=== PATIENT | male | born 1945 | race Caucasian/White ===

== ENCOUNTER 2021-11-19 13:25 | Inpatient (IN) | payer MEDICARE, OTHER ==
[~2021-11-19] VITALS: Ht 177.8 cm; Wt 68.3 kg
[2021-11-19] MEDS ORDERED: IVER3TAB2 PO (13:56)
[2021-11-19] MEDS ORDERED: AMIN30LI2 PO (13:56)
[2021-11-19] MEDS ORDERED: MULT-447 PO (13:56)
[2021-11-19] MEDS ORDERED: SULF1TAB48 PO (13:56)
[2021-11-19] MEDS ORDERED: FEBU80TA PO (13:56)
[2021-11-19] MEDS ORDERED: ASCO-352 PO (13:56)
[2021-11-19] MEDS ORDERED: ASPI-1420 PO (13:56)
[2021-11-19] MEDS ORDERED: IBUP-2715 PO (13:56)
[2021-11-19] MEDS ORDERED: POLY15DR40 EACHEYE (13:56)
[2021-11-19] MEDS ORDERED: CHOL100043 PO (13:56)
[2021-11-19] MEDS ORDERED: ONDA4TAB5 PO (13:56)
[2021-11-19] MEDS ORDERED: LEVO112T2 PO (13:56)
[2021-11-19] MEDS ORDERED: ALLA266C2 TP (13:56)
[2021-11-19] MEDS ORDERED: VITA1TAB56 PO (13:56)
[2021-11-19] MEDS ORDERED: GUAI100S11 PO (13:56)
[2021-11-19] MEDS ORDERED: BETA15CR4 TP (13:56)
[2021-11-19] MEDS ORDERED: HYDR453.3 TP (13:56)
[2021-11-19] MEDS ORDERED: DIPH25CA51 PO (13:56)
[2021-11-19 16:37] LABS: BASOPHILS % (AUTO) 1.3 % (0.0-2.0); EOSINOPHILS % (AUTO) 2.1 % (0.0-6.0); HEMATOCRIT 35 % (39-51); HEMOGLOBIN 11.9 g/dL (13.5-17.5); LYMPHOCYTES # (AUTO) 0.5 K/uL (0.8-4.8); LYMPHOCYTES % (AUTO) 13.8 % (20.0-44.0); MEAN CORPUSCULAR HGB CONC 34 g/dl (31.0-36.0); MEAN CORPUSCULAR VOLUME 97 fL (80-96); MONOCYTES # (AUTO) 0.3 K/uL (0.1-1.30); MONOCYTES % (AUTO) 9.1 % (2.0-12.0); NEUTROPHILS # (AUTO) 2.8 K/uL (1.8-8.9); NEUTROPHILS % (AUTO) 73.7 % (43.0-81.0); PLATELET COUNT (AUTO) 199 K/uL (150-450); RED BLOOD CELL COUNT(AUTO) 3.64 MIL/uL (4.5-6.0); WHITE BLOOD COUNT (AUTO) 3.8 K/uL (4.3-11.0)
[2021-11-19 16:48] LABS: CALCIUM, SERUM 8.5 mg/dL (8.5-10.1); CARBON DIOXIDE 29 mmol/L (21-32); CHLORIDE 96 mmol/L (98-107); CREATININE 1.8 mg/dL (0.6-1.3); GLUCOSE 109 mg/dL (74-106); SODIUM SERUM 132 mmol/L (136-145); UREA NITROGEN, BLOOD 41 mg/dL (7-18)
[2021-11-19 16:49] LABS: POTASSIUM 2.4 mmol/L (3.5-5.1)
[2021-11-19 16:56] LABS: BILIRUBIN,TOTAL 0.5 mg/dL (0.2-1.0)
[2021-11-19 16:57] LABS: ALANINE AMINOTRANSFERASE 19 U/L (12-78); ALBUMIN 2.5 g/dL (3.4-5.0); ALKALINE PHOSPHATASE 108 U/L (46-116); ASPARTATE AMINOTRANSFERASE 30 U/L (15-37); BILIRUBIN,DIRECT 0.2 mg/dL (0.0-0.2); LIPASE 1763 U/L (73-393); TOTAL PROTEIN, SERUM 6.6 g/dL (6.4-8.2)
[2021-11-19] MEDS ORDERED: IOHEXOL-300 100 ML VIAL IV ONE (17:00)
[2021-11-19] MEDS ORDERED: IV NS 0.9% 250 ML IV ONE (17:00)
[2021-11-19] MEDS ORDERED: POTASSIUM CHLORIDE 20 MEQ TAB.PRT.SR PO ONE ×2 (18:00→18:38)
[2021-11-19] MEDS ORDERED: IV NS 0.9% 1,000 ML IV ONE (18:30)
[2021-11-19] MEDS ORDERED: POTASSIUM CL. PREMIX PERIPHER. 200 ML ONE (18:38)
[2021-11-19] MEDS: POTASSIUM CL. PREMIX PERIPHER. 50 ML IV SCH ×4 (18:47→19:41)
[2021-11-20] MEDS ORDERED: HYDROCORTISONE 1% CREAM 28.35 GM TUBE TP ONE (00:26)
[2021-11-20] MEDS ORDERED: HYDROCORTISONE 1% CREAM 30 GM TUBE TP ONE (00:30)
[2021-11-20] MEDS ORDERED: IBUPROFEN 600 MG TABLET ONE (03:05)
[2021-11-20] MEDS ORDERED: IBUPROFEN 600 MG TABLET PO ONE (03:30)
[2021-11-20 15:15] LABS: CALCIUM, SERUM 8.4 mg/dL (8.5-10.1); CARBON DIOXIDE 29 mmol/L (21-32); CHLORIDE 99 mmol/L (98-107); CREATININE 1.8 mg/dL (0.6-1.3); GLUCOSE 111 mg/dL (74-106); POTASSIUM 3.4 mmol/L (3.5-5.1); SODIUM SERUM 136 mmol/L (136-145); UREA NITROGEN, BLOOD 38 mg/dL (7-18)
[2021-11-20] MEDS ORDERED: ACETAMINOPHEN 325 MG TABLET PO PRN (17:00)
[2021-11-20] MEDS ORDERED: MAGNESIUM HYDROXIDE 30 ML UDC PO PRN (17:00)
[2021-11-20] MEDS ORDERED: MAG HYDROX/AL HYDROX/SIMETH 30 ML UDC PO PRN (17:00)
[2021-11-20] MEDS ORDERED: MORPHINE SULFATE INJ 2 MG/ML DISP.SYRIN IV PRN (17:00)
[2021-11-20] MEDS ORDERED: Z GUARD REMEDY 4 OZ OINT TP PRN (17:00)
[2021-11-20] MEDS ORDERED: ONDANSETRON HCL/PF 4 MG/2 ML VIAL IVP PRN (17:00)
[2021-11-20] MEDS: IV NS 0.9% 1,000 ML IV PRN (18:08)
[2021-11-20 20:00] VITALS: BP_SYST 137; BP_SYST 98; BP_DIAS 50; BP_DIAS 63
[2021-11-21] MEDS: IBUPROFEN 600 MG TABLET PO PRN ×2 (02:39→23:09)
[2021-11-21 06:47] LABS: ALANINE AMINOTRANSFERASE 17 U/L (12-78); ALBUMIN 2.2 g/dL (3.4-5.0); ALKALINE PHOSPHATASE 89 U/L (46-116); ASPARTATE AMINOTRANSFERASE 19 U/L (15-37); BILIRUBIN,DIRECT 0.3 mg/dL (0.0-0.2); BILIRUBIN,TOTAL 0.5 mg/dL (0.2-1.0); CALCIUM, SERUM 8.1 mg/dL (8.5-10.1); CARBON DIOXIDE 27 mmol/L (21-32); CHLORIDE 103 mmol/L (98-107); CREATININE 1.6 mg/dL (0.6-1.3); GLUCOSE 110 mg/dL (74-106); MAGNESIUM 1.7 mg/dL (1.8-2.4); POTASSIUM 2.9 mmol/L (3.5-5.1); SODIUM SERUM 138 mmol/L (136-145); TOTAL PROTEIN, SERUM 5.6 g/dL (6.4-8.2); UREA NITROGEN, BLOOD 34 mg/dL (7-18)
[2021-11-21 06:50] LABS: BASOPHILS % (AUTO) 1.9 % (0.0-2.0); EOSINOPHILS % (AUTO) 9.3 % (0.0-6.0); HEMATOCRIT 31 % (39-51); HEMOGLOBIN 10.5 g/dL (13.5-17.5); LYMPHOCYTES # (AUTO) 0.5 K/uL (0.8-4.8); LYMPHOCYTES % (AUTO) 20.5 % (20.0-44.0); MEAN CORPUSCULAR HGB CONC 34 g/dl (31.0-36.0); MEAN CORPUSCULAR VOLUME 97 fL (80-96); MONOCYTES # (AUTO) 0.2 K/uL (0.1-1.30); MONOCYTES % (AUTO) 8.5 % (2.0-12.0); NEUTROPHILS # (AUTO) 1.5 K/uL (1.8-8.9); NEUTROPHILS % (AUTO) 59.8 % (43.0-81.0); PLATELET COUNT (AUTO) 151 K/uL (150-450); RED BLOOD CELL COUNT(AUTO) 3.19 MIL/uL (4.5-6.0); WHITE BLOOD COUNT (AUTO) 2.5 K/uL (4.3-11.0)
[2021-11-21 07:28] LABS: LIPASE 1635 U/L (73-393); PHOSPHORUS 0.9 mg/dL (2.5-4.9)
[2021-11-21 08:00] VITALS: BP 96/70
[2021-11-21] MEDS: PANTOPRAZOLE 40 MG VIAL IV SCH (08:21)
[2021-11-21] MEDS: HYDROCORTISONE 2.5% CREAM 28.4 GM TUBE TP PRN ×2 (10:11→21:11)
[2021-11-21] MEDS ORDERED: HYDROCODONE/APAP 5/325MG TABLET PO PRN (10:30)
[2021-11-21] MEDS ORDERED: Magnesium 1GM/D5W 100ML PREMIX 100 ML IV SCH (10:30)
[2021-11-21] MEDS: FOLIC ACID 1 MG TABLET PO SCH (10:33)
[2021-11-21] MEDS: THIAMINE HCL 100 MG TABLET PO SCH (10:41)
[2021-11-21] MEDS: TRIAMCINOLONE ACETONIDE 0.5% 15 GM TUBE TP SCH ×2 (11:36→16:04)
[2021-11-21] MEDS: POTASSIUM CL. PREMIX PERIPHER. 50 ML IV SCH ×3 (11:41→14:09)
[2021-11-21] MEDS: ENSURE ENLIVE 237 ML LIQUID (VANILLA) PO SCH ×2 (14:21→16:05)
[2021-11-21] MEDS: POTASSIUM PHOSPHATE MM 7.5 MMOL in IV NS 0.9% 100 ML IV SCH ×2 (15:42→23:09)
[2021-11-21] MEDS ORDERED: K PHOS NEUTRAL 250 MG TABLET PO ONE (16:00)
[2021-11-21 20:00] VITALS: BP 125/71
[2021-11-21] MEDS: IV NS 0.9% 1,000 ML IV PRN (20:59)
[2021-11-22 07:02] LABS: BASOPHILS % (AUTO) 1.4 % (0.0-2.0); EOSINOPHILS % (AUTO) 9.5 % (0.0-6.0); HEMATOCRIT 31 % (39-51); HEMOGLOBIN 10.5 g/dL (13.5-17.5); LYMPHOCYTES # (AUTO) 0.6 K/uL (0.8-4.8); LYMPHOCYTES % (AUTO) 19.2 % (20.0-44.0); MEAN CORPUSCULAR HGB CONC 34 g/dl (31.0-36.0); MEAN CORPUSCULAR VOLUME 98 fL (80-96); MONOCYTES # (AUTO) 0.2 K/uL (0.1-1.30); MONOCYTES % (AUTO) 7.9 % (2.0-12.0); NEUTROPHILS # (AUTO) 1.8 K/uL (1.8-8.9); PLATELET COUNT (AUTO) 151 K/uL (150-450); WHITE BLOOD COUNT (AUTO) 2.9 K/uL (4.3-11.0)
[2021-11-22 07:23] LABS: CALCIUM, SERUM 7.9 mg/dL (8.5-10.1); CREATININE 1.3 mg/dL (0.6-1.3); MAGNESIUM 1.7 mg/dL (1.8-2.4); PHOSPHORUS 1.7 mg/dL (2.5-4.9); POTASSIUM 3.4 mmol/L (3.5-5.1)
[2021-11-22] MEDS ORDERED: MAGNESIUM OXIDE 400 MG TABLET PO ONE (08:00)
[2021-11-22] MEDS: POTASSIUM PHOSPHATE MM 7.5 MMOL in IV NS 0.9% 100 ML IV SCH ×3 (08:00→15:55)
[2021-11-22] MEDS: FOLIC ACID 1 MG TABLET PO SCH (08:48)
[2021-11-22] MEDS: THIAMINE HCL 100 MG TABLET PO SCH (08:48)
[2021-11-22] MEDS: ENSURE ENLIVE 237 ML LIQUID (VANILLA) PO SCH ×3 (08:49→16:42)
[2021-11-22] MEDS: PANTOPRAZOLE 40 MG VIAL IV SCH (08:49)
[2021-11-22] MEDS ORDERED: TRIA15CR2 TP (09:21)
[2021-11-22] MEDS ORDERED: K PHOS NEUTRAL 250 MG TABLET PO ONE (09:30)
[2021-11-22] MEDS: TRIAMCINOLONE ACETONIDE 0.5% 15 GM TUBE TP SCH ×3 (09:34→16:43)
[2021-11-22 20:00] VITALS: BP 97/59
[2021-11-23] MEDS: IBUPROFEN 600 MG TABLET PO PRN (00:22)
[2021-11-23] MEDS: THIAMINE HCL 100 MG TABLET PO SCH (08:10)
[2021-11-23] MEDS: FOLIC ACID 1 MG TABLET PO SCH (08:10)
[2021-11-23] MEDS: ENSURE ENLIVE 237 ML LIQUID (VANILLA) PO SCH (08:11)
[2021-11-23] MEDS: TRIAMCINOLONE ACETONIDE 0.5% 15 GM TUBE TP SCH (08:11)
[2021-11-23] MEDS ORDERED: PANTOPRAZOLE 40 MG TABLET.DR PO SCH (09:00)
== END 2021-11-23 11:30 | DRG 438 ==
LOC: ER 13:27 → MED 11-20 16:32
PROVIDERS: ADMIT Internal Medicine; ATTEND Internal Medicine
DX: K85.90 Acute pancreatitis without necrosis or infection, unspecified (principal); E43 Unspecified severe protein-calorie malnutrition; N17.0 Acute kidney failure with tubular necrosis; N39.0 Urinary tract infection, site not specified; E87.6 Hypokalemia; Z20.822 Contact with and (suspected) exposure to COVID-19; E03.9 Hypothyroidism, unspecified; M10.9 Gout, unspecified; Z79.82 Long term (current) use of aspirin; Z79.899 Other long term (current) drug therapy; E83.39 Other disorders of phosphorus metabolism; E88.09 Other disorders of plasma-protein metabolism, not elsewhere classified; F10.11 Alcohol abuse, in remission; L20.9 Atopic dermatitis, unspecified; G62.9 Polyneuropathy, unspecified; Z99.3 Dependence on wheelchair; D53.9 Nutritional anemia, unspecified
CPT/HCPCS: 36415; 71260-TC; 76705-TC; 80048-TC; 80076-TC; 83690-TC; 83735-TC; 84100-TC; 85025-TC; 85730-TC; 87081-TC; 97112-TC; 97530-TC; C9113; C9803; G0378; J3475; J3480; J3490; J7030; J7040; J7050; Q9967

== ENCOUNTER 2022-02-16 23:09 | Inpatient (IN) | payer MEDICARE, OTHER ==
[~2022-02-16] VITALS: Ht 170.2 cm; Wt 72.6 kg
[~2022-02-16 23:09] MED LIST: ALLA266C2 TP; AMIN30LI2 PO; ASCO-352 PO; ASPI-1420 PO; BETA15CR4 TP; CHOL100043 PO; DIPH25CA51 PO; FEBU80TA PO; GUAI100S11 PO; IBUP-2715 PO; IVER3TAB2 PO; LEVO112T2 PO; MULT-447 PO; ONDA4TAB5 PO; POLY15DR40 EACHEYE; TRIA15CR2 TP; VITA1TAB56 PO
--- NOTE | 2022-02-16 23:33 | NUR ---
PATIENT BIBPA FROM [facility] FOR MEDICAL CLEARANCE TO GET ADMIITED TO PSYCH UNIT. + AGRESSIVE BEHAVIOR TOWARD STAFF. ON 5150 HOLD. PATIENT A/O X 3, RR EVEN AND UNLABORED, NO SOB NOTED. PATIENT VSS, NO ACUTE DISTRESS NOTED.
--- NOTE | 2022-02-16 23:34 | NUR ---
COVID SWAB COLLECTED
[2022-02-17] MEDS ORDERED: LIDOCAINE 2% JEL UROJET 10 ML MM ONE (00:07)
[2022-02-17 00:10] LABS: BASOPHILS % (AUTO) 0.9 % (0.0-2.0); EOSINOPHILS % (AUTO) 8.5 % (0.0-6.0); HEMATOCRIT 35 % (39-51); HEMOGLOBIN 11.5 g/dL (13.5-17.5); LYMPHOCYTES # (AUTO) 1.2 K/uL (0.8-4.8); LYMPHOCYTES % (AUTO) 22.2 % (20.0-44.0); MEAN CORPUSCULAR HGB CONC 33 g/dl (31.0-36.0); MEAN CORPUSCULAR VOLUME 88 fL (80-96); MONOCYTES # (AUTO) 0.7 K/uL (0.1-1.30); MONOCYTES % (AUTO) 12.5 % (2.0-12.0); NEUTROPHILS % (AUTO) 55.9 % (43.0-81.0); PLATELET COUNT (AUTO) 226 K/uL (150-450); RED BLOOD CELL COUNT(AUTO) 3.92 MIL/uL (4.5-6.0); WHITE BLOOD COUNT (AUTO) 5.3 K/uL (4.3-11.0)
[2022-02-17 00:24] LABS: CALCIUM, SERUM 8.6 mg/dL (8.5-10.1); CARBON DIOXIDE 28 mmol/L (21-32); CHLORIDE 104 mmol/L (98-107); CREATININE 1.5 mg/dL (0.6-1.3); GLUCOSE 102 mg/dL (74-106); SODIUM SERUM 138 mmol/L (136-145); UREA NITROGEN, BLOOD 26 mg/dL (7-18)
[2022-02-17 00:38] LABS: ALANINE AMINOTRANSFERASE 9 U/L (12-78); ALBUMIN 2.8 g/dL (3.4-5.0); ALKALINE PHOSPHATASE 53 U/L (46-116); ASPARTATE AMINOTRANSFERASE 11 U/L (15-37); BILIRUBIN,DIRECT 0.2 mg/dL (0.0-0.2); BILIRUBIN,TOTAL 0.4 mg/dL (0.2-1.0); TOTAL PROTEIN, SERUM 6.7 g/dL (6.4-8.2)
[2022-02-17 00:50] LABS: ACETAMINOPHEN < 2 ug/ml (10-30); ALCOHOL, BLOOD < 3 mg/dL (0-0)
[2022-02-17 01:22] LABS: BILIRUBIN,URINE NEGATIVE (NEGATIVE); COLOR,URINE YELLOW (YELLOW); LEUKOCYTE ESTERASE ,URINE LARGE (NEGATIVE); NITRITE, URINE POSITIVE (NEGATIVE); PROTEIN,URINE TRACE mg/dl (NEGATIVE); UGLUCOSE NEGATIVE (NEGATIVE); UROBILINOGEN,URINE 0.2 EU/dL (0.2)
[2022-02-17 01:53] LABS: BACTERIA,URINE Many /HPF (None Seen); SQUAMOUS EPITHELIAL CELL,UR Rare /HPF (None Seen); WBC,URINE TOO NUMEROUS TO COUN /HPF (0-3)
[2022-02-17] MEDS ORDERED: CEPHALEXIN MONOHYDRATE 500 MG CAPSULE PO ONE (02:00)
[2022-02-17] MEDS ORDERED: CEPHALEXIN MONOHYDRATE 500 MG CAPSULE PO SCH (02:00)
--- NOTE | 2022-02-17 05:35 | NUR ---
REPORT PROMISE WINSTON AT [facility]
--- NOTE | 2022-02-17 06:15 | NUR ---
GETTING TO TRANSFERRED TO [facility] IN STABLE CONDITION
[2022-02-17] MEDS ORDERED: TEMAZEPAM 7.5 MG CAPSULE PO PRN (06:30)
[2022-02-17] MEDS ORDERED: ACETAMINOPHEN 325 MG TABLET PO PRN (06:30)
[2022-02-17] MEDS ORDERED: MAG HYDROX/AL HYDROX/SIMETH 30 ML UDC PO PRN (06:30)
[2022-02-17] MEDS ORDERED: BLOOD SUGAR DIAGNOSTIC 1 EACH STRIP IN ONE (06:30)
[2022-02-17] MEDS ORDERED: LORAZEPAM 0.5 MG TABLET PO PRN (06:30)
[2022-02-17] MEDS ORDERED: MAGNESIUM HYDROXIDE 30 ML UDC PO PRN (06:30)
--- NOTE | 2022-02-17 10:25 | NUR ---
GINA Initial Discharge Note: Patient currently resides at [address] [address]; ). GINA contacted Rhonda if pt can return back. Rhonda stated he will notify this job specification writer. GINA will work with the MD and pt to help coordinate appropriate discharge.
--- NOTE | 2022-02-17 10:26 | NUR ---
GINA Clinical Note: Pt placed on a 5150 hold for danger to others and GD. Pt was aggressive at his facility. Patient currently resides at [address] [address]; ). GINA contacted Rhonda if pt can return back. Rhonda stated he will notify this life underwriter.
--- NOTE | 2022-02-17 10:28 | NUR ---
Treatment Plan: Pt refused to sign treatment plan and appeared suspicious.
[2022-02-17] MEDS: QUETIAPINE FUMARATE 25 MG TABLET PO SCH ×2 (13:27→21:17)
[2022-02-17 16:00] VITALS: BP 124/82
--- NOTE | 2022-02-17 16:27 | NUR ---
[facility] 76 [facility]/O [facility] 5150 HOLD FOR GD AND DTO ,PER HOLD PATIENT PATIENT UPSET AND THREW A SHAMPOO BOTTLE AT STAFF ,HE REPORT THEY ARE NOT TAKING CARE OF HIM ,PT NURSE REPORT PT SCREAMING AND PHYSICALLY AGGRESSIVE TOWARDS STAFF AND ATTACKS STAFF ,PT HAS HX OF DEPRESSION AND ANXIETY . ADMITTING DX. PSYCHOSIS NOS .MEDICAL HX OF PANCREATITIS PERIPHERAL NEUROPATHY ANEMIA,UTI ,RIGHT KNEE REPLACEMENT. UPON FACE TO FACE EVALUATION, PATIENT APPEARED ALERT AND ORIENTED X 3, MOOD DEPRESSED ,EASILY AGITATED PREOCCUPIED WITH HIS OWN THOUGHTS ,PARANOID AND SUSPICIOUS,PATIENT STATED "NURSE ASSISTANTS IN FACILITY THEY WERE AFTER ME".PATIENT DISHEVELED AND UNKEMPT ,REFUSED TO SHOWER AND COMPELET ADLS . PATIENT UNABLE TO SIGN PAPER WORKS DUE TO AGITATION AND PARANOIA .VS STABLE BP128/85 , P74 ,T98 R 18 , O2 SAT98, NO SOB, NO ACUTE DISTRESS, BREATHING EVEN AND UNLABORED, NO S/S OF PAIN AND DISCOMFORT.PATIENT'S RIGHT HAND BOOK GIVEN AND EXPLAINED TO PATIENT ABLE TO VERBALIZE UNDERSTANDING, ADVISEMENT GIVEN AND EXPLAINED TO PATIENT ABLE TO VERBALIZE UNDERSTANDING . PATIENT IS UNDER THE CARE OF DR. CERRATO AND DARINEL YANG DNP . BELONGINGS COLLECTED FOR CONTRABAND CHECK. NOTIFIED DR. YANG TO RECONCILE MEDICATION. PT REFUSED RESPONSIBLE CONSTITUTION PARTY TO BE NOTIFY OF THE ADMISSION. WILL CONTINUE TO MONITOR Q15 MINUETS FOR SAFETY.
[2022-02-17] MEDS: CEPHALEXIN MONOHYDRATE 500 MG CAPSULE PO SCH (17:42)
[2022-02-17] MEDS: PROSOURCE / PROSTAT (PYXIS) 30 ML UDC PO SCH (17:42)
[2022-02-17 20:08] VITALS: BP 125/83
[2022-02-18 08:00] VITALS: BP 113/67
[2022-02-18 08:06] LABS: CREATININE 1.3 mg/dL (0.6-1.3)
[2022-02-18 08:12] LABS: CHOLESTEROL 149 mg/dL (<200); HDL CHOLESTEROL 33 mg/dL (40-60); LDL 102 mg/dL (0-99); TRIGLYCERIDES 105 mg/dL (30-150)
--- NOTE | 2022-02-18 08:19 | NUR ---
SNF Referral: SW sent to Alf tate ([phone]) for placement option. SW sent H & P, progress notes, and medication list.
[2022-02-18] MEDS: LEVOTHYROXINE SODIUM 112 MCG TABLET PO SCH (08:20)
--- NOTE | 2022-02-18 09:00 | NUR ---
NURSE NOTE: PT SLEEPING IN ROOM, ANSWERS TO NAME. NO LABORED BREATHING NOTED AT THIS TIME. PT IN STABLE CONDITION. WILL CONT TO MONITOR.
[2022-02-18] MEDS: ASPIRIN EC 81 MG TABLET.DR PO SCH (09:20)
[2022-02-18] MEDS: QUETIAPINE FUMARATE 25 MG TABLET PO SCH ×3 (09:20→22:24)
[2022-02-18] MEDS: CEPHALEXIN MONOHYDRATE 500 MG CAPSULE PO SCH ×2 (09:21→17:39)
[2022-02-18] MEDS: PROSOURCE / PROSTAT (PYXIS) 30 ML UDC PO SCH ×2 (09:36→17:40)
[2022-02-18] MEDS: IBUPROFEN 600 MG TABLET PO PRN (11:01)
--- NOTE | 2022-02-18 11:04 | NUR ---
Patient c/o generalize pain 5/10 medicated with Motrin 600mg po x1.will continue to monitor .
--- NOTE | 2022-02-18 11:49 | NUR ---
SNF Contact: SW sent clinicals to [facility] who stated that pt has been denied due to his behavior: Mary Lamb, denied, Harman Bae, denied, Loco, denied, Virgil Golden, denied, Charles, denied.
[2022-02-18 16:00] VITALS: BP 115/72
[2022-02-18 16:51] LABS: BILIRUBIN,URINE NEGATIVE (NEGATIVE); COLOR,URINE YELLOW (YELLOW); LEUKOCYTE ESTERASE ,URINE LARGE (NEGATIVE); NITRITE, URINE NEGATIVE (NEGATIVE); PH,URINE 6.5 (5.0-8.0); PROTEIN,URINE NEGATIVE (NEGATIVE); UGLUCOSE NEGATIVE (NEGATIVE); UROBILINOGEN,URINE 0.2 EU/dL (0.2)
--- NOTE | 2022-02-18 17:00 | NUR ---
NURSE NOTE: REDNESS TO SACRAL AREA. Z GAURD AND MEPELEX PLACED TO AREA. ENCOURAGED TO TURN Q2H.
[2022-02-18 17:10] LABS: BACTERIA,URINE 3+ /HPF (None Seen); RBC,URINE 21-50 /HPF (0-2); SQUAMOUS EPITHELIAL CELL,UR 0-2 /HPF (None Seen); WBC,URINE 81-100 /HPF (0-3)
[2022-02-18] MEDS: Z GUARD REMEDY 4 OZ OINT TP SCH (17:40)
--- NOTE | 2022-02-18 19:36 | NUR ---
[facility] RN OPENING NOTES: RECEIVED PATIENT IN BED, AWAKE, A/O X3. PATIENT APPEARS DEPRESSED, FLAT AFFECT, LABILE, EASILY IRRITABLE, GUARDED, SUSPICIOUS. PATIENT ENCOURAGED TO VERBALIZE FEELINGS. PATIENT HAS NO S/S OF DISTRESS. RESPIRATION EVEN AND UNLABORED WITH EQUAL RISE AND FALL OF THE CHEST, ON ROOM AIR. PATIENT IS OFFERED FLUID AND SNACKS TOLERATED. BED IN LOWEST LOCKED POSITION, CALL LIGHT WITHIN REACH. WILL CONTINUE TO MONITOR Q15 MINS FOR MOOD, BEHAVIOR AND SAFETY.
[2022-02-18 20:00] VITALS: BP 108/72
[2022-02-19] MEDS: LEVOTHYROXINE SODIUM 112 MCG TABLET PO SCH ×2 (07:30→08:37)
[2022-02-19 08:00] VITALS: BP 112/81
[2022-02-19] MEDS: CEPHALEXIN MONOHYDRATE 500 MG CAPSULE PO SCH ×4 (08:38→17:19)
[2022-02-19] MEDS: Z GUARD REMEDY 4 OZ OINT TP SCH (08:38)
[2022-02-19] MEDS: QUETIAPINE FUMARATE 25 MG TABLET PO SCH ×5 (08:38→21:12)
[2022-02-19] MEDS: ASPIRIN EC 81 MG TABLET.DR PO SCH ×3 (08:38→10:06)
[2022-02-19] MEDS: PROSOURCE / PROSTAT (PYXIS) 30 ML UDC PO SCH ×3 (08:55→17:20)
[2022-02-19] MEDS: IBUPROFEN 600 MG TABLET PO PRN (09:01)
--- NOTE | 2022-02-19 09:19 | NUR ---
GINA Note: GINA met with pt and discussed discharge planning. GINA notified that this director underwriter sales has to find pt a different facility due to his behaviors at the facility. He was agreeable of this director underwriter sales finding a different facility.
--- NOTE | 2022-02-19 11:12 | NUR ---
SNF Contact: SW received a call from Nedra tate from [facility] ([phone]) who stated that pt is accepted.
--- NOTE | 2022-02-19 11:48 | NUR ---
SW Note: [facility] evaluated pt and pt is agreeable of going to the facility.
[2022-02-19 16:00] VITALS: BP 124/82
--- NOTE | 2022-02-19 19:20 | NUR ---
RN-NOTES PATIENT LYING IN BED AWAKE,ALERT X3 GUARDED,NO ACUTE DISTRESS NOTED. COMPLIANT WITH MEDICATIONS. NOTED WITH EASILY ANGRY AND ARGUMENTATIVE BEHAVIOR. NEEDS MINIMAL ASSIST WITH ADL'S. ALL NEEDS ATTENDED AND ANTICIPATED.ENCOURAGED AND ASSIST PATIENT WITH REPOSITIONING Q2HRS. WILL CONT.MONITORING FOR SAFETY AND BEHAVIOR.WILL ENDORSE TO INCOMING NURSE FOR CONTINUITY OF CARE.
--- NOTE | 2022-02-19 19:56 | NUR ---
[facility] WINDOW GLAZIER HELPER NOTE PATIENT AWAKE , SITTING IN BED,ALERT X3 GUARDED,NO ACUTE DISTRESS NOTED. NOTED WITH EASILY ANGRY AND ARGUMENTATIVE BEHAVIOR. DENIES PAIN OR DISCOMFORT AT THIS TIME, CURRENTLY PLAYING CARDS IN HIS BED. WILL CONT TO MONITOR PT'S BEHAVIOR, MOOD, AND SAFETY. WILL ANTICIPATE AND ATTEND NEEDS.
[2022-02-19 20:00] VITALS: BP 106/73
--- NOTE | 2022-02-19 23:10 | NUR ---
Pt awake, attended needs, provided with fresh water - offered pt PRN Restoril for insomnia- pt refused and denies trouble sleeping. Will cont to monitor and anticipate needs.
[2022-02-20] MEDS: IBUPROFEN 600 MG TABLET PO PRN (00:26)
--- NOTE | 2022-02-20 00:27 | NUR ---
Pt remains awake, offered PRN medication for insomnia still refusing, but is requesting for PRN Ibuprofen c/o back pain, PRN as ordered given, and also repositioned pt, cont to monitor and anticipate needs.
--- NOTE | 2022-02-20 01:55 | NUR ---
Noted pt sleeping at this time, easy to arouse, breathing even and unlabored. Will cont to monitor and anticipate needs.
--- NOTE | 2022-02-20 05:51 | NUR ---
[employer] CLOSING NOTE PATIENT LYING IN BED AWAKE,ALERT X3 GUARDED,NO ACUTE DISTRESS NOTED. COMPLIANT WITH MEDICATIONS. NO SIGNIFICANT CHANGE IN CLINICAL CONDITION , NEEDS MINIMAL ASSIST WITH ADL'S. ALL NEEDS ATTENDED AND ANTICIPATED.ENCOURAGED AND ASSIST PATIENT WITH REPOSITIONING Q2HRS. MONITORING FOR SAFETY AND BEHAVIOR.WILL ENDORSE TO INCOMING AM NURSE FOR CONTINUITY OF CARE.
[2022-02-20] MEDS: LEVOTHYROXINE SODIUM 112 MCG TABLET PO SCH (07:53)
--- NOTE | 2022-02-20 07:53 | NUR ---
SW Discharge Note: Patient will be discharged to [facility] located at [address] [place] [id number]; ([phone]) via ambulance. Muna tate from [facility] ([phone]) accepted pt and is welcoming pt today. Pt has no supportive contact. Pt appears to be alert and oriented x1. Pt denies visual/auditory hallucinations. Pt denies denies suicidal or homicidal ideation. Patient will continue to follow-up with (Psychiatrist) Dr. Og [address] [facility] [address], [place] [address]; ([phone]). (Plant Supervisor) Dr. Mortensen [address] [facility] [address], [place] [address]; ([phone]).
[2022-02-20 08:00] VITALS: BP 103/71
[2022-02-20] MEDS: CEPHALEXIN MONOHYDRATE 500 MG CAPSULE PO SCH (08:04)
[2022-02-20] MEDS: ASPIRIN EC 81 MG TABLET.DR PO SCH (08:04)
[2022-02-20] MEDS: QUETIAPINE FUMARATE 25 MG TABLET PO SCH (08:04)
[2022-02-20] MEDS: PROSOURCE / PROSTAT (PYXIS) 30 ML UDC PO SCH (08:06)
[2022-02-20] MEDS: Z GUARD REMEDY 4 OZ OINT TP SCH (08:06)
--- NOTE | 2022-02-20 08:47 | NUR ---
Dr. Og gave an order to D/C hold and D/C to [facility] and to follow up with psych and medical doctors. Psychiatrist gave an order to continue same meds including prn.
[2022-02-20] MEDS ORDERED: CEPH500C2 PO (09:58)
--- NOTE | 2022-02-20 12:30 | NUR ---
RN-NOTES PATIENT HAD A DISCHARGE ORDER FROM DR. CERRATO ( PSYCHIATRIST),TONY LEONARDO( DIRECTOR OF MANAGED CARE) MEDICALLY CLEARED PATIENT FOR DISCHARGE. PATIENT WAS DISCHARGE TO SNF. PATIENT LEFT THE UNIT IN STABLE CONDITION A/O X3 , DENIES SI/HI/AVH UPON DISCHARGE. REPORT WAS GIVEN TO MAT ( RN FACILITY STAFF). PATIENT WAS CREDIT CORRESPONDENCE CLERK BY AMBULANCE VIA GURNEY WITH TWO STAFF ASSIST. ALL BELONGINGS WAS GIVEN BACK TO THE PATIENT INCLUDING BILATERAL HEARING AID,CELLPHONE X1,TABLET X1 ,WALLET AND SOME CLOTHES.
== END 2022-02-20 12:30 | DRG 885 ==
LOC: ER 23:11 → GPS 02-17 01:39
PROVIDERS: ADMIT Psychiatry & Neurology Psychosomatic Medicine; ATTEND Nurse Practitioner Acute Care
DX: F29 Unspecified psychosis not due to a substance or known physiological condition (principal); N17.0 Acute kidney failure with tubular necrosis; K86.1 Other chronic pancreatitis; N39.0 Urinary tract infection, site not specified; G62.9 Polyneuropathy, unspecified; E03.9 Hypothyroidism, unspecified; K76.0 Fatty (change of) liver, not elsewhere classified; D63.8 Anemia in other chronic diseases classified elsewhere; M10.9 Gout, unspecified; Z96.651 Presence of right artificial knee joint; Z79.899 Other long term (current) drug therapy; Z79.82 Long term (current) use of aspirin; B96.89 Other specified bacterial agents as the cause of diseases classified elsewhere; M19.90 Unspecified osteoarthritis, unspecified site; F60.2 Antisocial personality disorder; R41.9 Unspecified symptoms and signs involving cognitive functions and awareness
CPT/HCPCS: 36415; 76770-TC; 80048-TC; 80061-TC; 80076-TC; 81001; 82565-TC; 85025-TC; 87081-TC; 87086-TC; 87186-TC; 97112-TC; 97530-TC; C9803; G0480; J3490